=== PATIENT | male | born 1970 | race Caucasian/White ===

== ENCOUNTER 2018-02-24 20:36 | Emergency (ER) | payer OTHER ==
--- NOTE | 2018-02-24 22:28 | ED Physician Documentation ---
PD HPI BACK INJURY - Stated complaint Stated Complaint: BACK PAIN - History obtained from History obtained from: Patient - History of Present Illness Location: Right, Lower Type of injury: Fall (he fell on steps onto his buttock/low back 02/09 and had pain in low back, that worsened the next few days and has continued to hurt more. Gettin pain radiate to right inguinal area and feels some pain into testicle (but no tenderness there). Pain with ROM of low back. Had taken NSAIDs without improvement. Seen at walk in clinic in [place] 02/18 and got Rx for naproxen and flexeril. He states no improvement with those. Pain worse. No bladder incontinence. No weakness of leg.) Where injury occurred: Home Timing - onset: How many weeks ago (2) Timing - duration: Weeks (2) Timing - details: Abrupt onset, Still present (progressive worsening.) Recently seen: Clinic ([facility] [place] 02[place]18 with Rx Naproxen and flexeril and referral for PT, which patient went to today and the therapist felt the patient should be seen in ER due to degree of pain.), Surgery (had Achilles surgery month ago and has walking boot on, which led to the falling on the stairs as boot slid.) Review of Systems Constitutional: denies: Fever, Chills Nose: denies: Rhinorrhea / runny nose, Congestion Throat: denies: Sore throat Respiratory: denies: Cough GI: denies: Abdominal Pain, Nausea, Vomiting, Diarrhea : denies: Dysuria, Incontinent, Hematuria Skin: denies: Rash, Lesions Neurologic: reports: Numbness (numb area right anteromedial thigh.). denies: Focal weakness PD PAST MEDICAL HISTORY - Past Medical History Past Medical History: Yes Cardiovascular: None Respiratory: None Neuro: None HEENT: Other Other Past Medical History: Seasonal allergies - Past Surgical History Past Surgical History: Yes Ortho: Other - Present Medications Home Medications: Ambulatory Orders Medication Instructions Recorded Confirmed Omeprazole [PriLOSEC] 20 mg PO BID 02/24/18 diphenhydrAMINE [Benadryl] 50 mg PRN 02/24/18 Dexamethasone [Decadron] 4 mg PO DAILY #5 tablet 02/25/18 Naproxen [Naprosyn] 500 mg PO BID PRN #20 tablet 02/25/18 Oxycodone HCl/Acetaminophen 1 each PO Q6H PRN #20 tablet 02/25/18 [Percocet 5-325 mg Tablet] - Allergies Allergies/Adverse Reactions: Allergies Allergy/AdvReac Type Severity Reaction Status Date / Time No Known Drug Allergies Allergy Verified 02/24/18 21:12 - Social History Does the pt smoke?: No Smoking Status: Never smoker Does the pt drink ETOH?: Yes Does the pt have substance abuse?: No - Immunizations Immunizations are current?: Yes PD ED PE NORMAL - Vitals Vital signs reviewed: Yes - General General: Alert and oriented X 3, No acute distress, Well developed/nourished - Male Male : Deferred - Derm Derm: Normal color, Warm and dry - Extremities Extremities: No edema, No calf tenderness / cord, Other (walking boot orthosis on right lower leg. ) - Neuro Neuro: Alert and oriented X 3, No motor deficit, Normal speech, Other (normal reflexes at knees. There is decreased sensation to touch at right anteromedial proximal thigh. ) Results - Vitals Vitals: Vital Signs - 24 hr 02/24/18 02/25/18 20:50 00:06 Temperature 36.2 C L Heart Rate 89 77 Respiratory 18 18 Rate Blood Pressure 134/84 H 123/82 H O2 Saturation 97 97 Oxygen O2 Source Room air - Rads (name of study) lumbar and pelvic CT Radiology: Prelim report reviewed (no fractures nor noted disc problems on CT. ) PD MEDICAL DECISION MAKING - ED course Complexity details: considered differential (has symptoms of sacral radiculitis. No rash nor sores. CT scan without fractures nor obvious lumbar disc problems. I don't think he needs urgent MRI. Pain improved with meds in ED though still hurting. ), d/w patient - Sepsis Event Vital Signs: Vital Signs - 24 hr 02/24/18 02/25/18 20:50 00:06 Temperature 36.2 C L Heart Rate 89 77 Respiratory 18 18 Rate Blood Pressure 134/84 H 123/82 H O2 Saturation 97 97 Oxygen O2 Source Room air Departure - Departure Disposition: 01 Home, Self Care Clinical Impression: Right sacral radiculopathy Low back pain Qualifiers: Chronicity: acute Back pain laterality: right Sciatica presence: without sciatica Qualified Code(s): M54.5 - Low back pain Accidental fall Qualifiers: Encounter type: initial encounter Qualified Code(s): W19.XXXA - Unspecified fall, initial encounter Condition: Stable Record reviewed to determine appropriate education?: Yes Instructions: ED Sciatica Prescriptions: Dexamethasone [Decadron] 4 mg PO DAILY #5 tablet Naproxen [Naprosyn] 500 mg PO BID PRN #20 tablet PRN Reason: Pain Oxycodone HCl/Acetaminophen [Percocet 5-325 mg Tablet] 1 each PO Q6H PRN #20 tablet PRN Reason: Pain Comments: The CT scans did not show any fractures or obvious structural abnormality such as disc protrusions. Obviously it is hurting and presume there is muscle and ligament injury and pressure on the nerve root causing the numbness area. Will try using anti-inflammatories with naproxen and dexamethasone. Continue the cyclobenzaprine muscle relaxant as needed for spasms. Add Percocet if needed for pain. Follow-up with your primary care over the next week, call for an appointment. Discharge Date/Time: 02/25/18 00:31
[2018-02-24] MEDS ORDERED: HYDROmorphone 1 MG/ML CARPUJECT IM STA (22:52)
[2018-02-24] MEDS ORDERED: ONDANSETRON ODT 4 MG TABLET TL STA (22:52)
[2018-02-24] MEDS ORDERED: KETOROLAC 60 MG/2 ML VIAL IM STA (22:52)
[2018-02-24] MEDS ORDERED: DEXAMETHASONE 10 MG/ML VIAL PO STA (22:53)
[2018-02-24] MEDS ORDERED: CHERRY SYRUP 10 ML UDC PO ONE (23:02)
--- NOTE | 2018-02-24 23:53 | CT Report ---
Procedure Date: 02/24/2018 Accession Number: [id number] / [id number] Procedure: CT - Lumbar Spine W/O CPT Code: FULL RESULT: EXAM: CT LUMBAR SPINE WITHOUT CONTRAST EXAM DATE: 02/24/2018 11:25 PM. CLINICAL HISTORY: Fall, back pain COMPARISONS: None. TECHNIQUE: Thin-section axial images were acquired of the lumbar spine from T12 to S1 without contrast. Post-processing: Coronal and sagittal reformats. Other: None. In accordance with CT protocol optimization, one or more of the following dose reduction techniques were utilized for this exam: automated exposure control, adjustment of mA and/or KV based on patient size, or use of iterative reconstructive technique. FINDINGS: Alignment: No scoliosis or spondylolisthesis. Bones: Five par-[id number] lumbar vertebral bodies are present. No fractures or bone lesions. Disk Levels/Facets: T12-L1: Unremarkable. L1-L2: Unremarkable. L2-L3: Unremarkable. L3-L4: Unremarkable. L4-L5: Unremarkable. L5-S1: Unremarkable. Musculature: Normal. No fatty atrophy. Other: The visualized retroperitoneum is unremarkable. IMPRESSION: There is no evidence of lumbar spine fracture or dislocation. [facility]
--- NOTE | 2018-02-25 00:03 | CT Report ---
Procedure Date: 02/24/2018 Accession Number: [id number] / [id number] Procedure: CT - Pelvis W/O CPT Code: FULL RESULT: EXAM: CT BONY PELVIS WITHOUT CONTRAST EXAM DATE: 02/24/2018 11:26 PM. CLINICAL HISTORY: Fall, pain COMPARISON: None. TECHNIQUE: Thin-section axial images were acquired of the pelvis without contrast. Post-processing: Coronal and sagittal reformats. Other: None. In accordance with CT protocol optimization, one or more of the following dose reduction techniques were utilized for this exam: automated exposure control, adjustment of mA and/or KV based on patient size, or use of iterative reconstructive technique. FINDINGS: Bones: No fracture or bone lesion. Sacroiliac Joints: There is partial fusion of the anterior margins of the sacroiliac joints. Symphysis Pubis: Unremarkable. Right Hip: The joint space is preserved. No calcified loose bodies. Left Hip: The joint space is preserved. No calcified loose bodies. Musculature: Normal. No fatty atrophy. Pelvic Cavity: The visualized bowel, bladder, and reproductive organs are unremarkable on this noncontrast exam. Other: No lymphadenopathy. No free air or free fluid. The other visualized soft tissues are unremarkable. IMPRESSION: No evidence of pelvic fracture or dislocation. [facility]
[2018-02-25 00:07] VITALS: BP 123/82
[2018-02-25] MEDS ORDERED: oxyCOD/ACETAMIN 5 MG/325 MG TABLET PO STA (00:22)
[2018-02-25] MEDS ORDERED: oxyCODONE/ACET 5/325 Prepack 4 PO STA (00:22)
== END 2018-02-25 00:31 | disposition home or self-care (01) ==
LOC: ED 20:36
DX: M54.18 Radiculopathy, sacral and sacrococcygeal region (principal); M54.5 Low back pain; Z91.81 History of falling
CPT/HCPCS: 72131; 72192; 96372; 99283; A9270; J1170; Q0162

== ENCOUNTER 2021-09-09 08:00 | Outpatient (CLI) | payer OTHER ==
--- NOTE | 2021-09-09 13:34 | XRAY Report ---
PROCEDURE: Chest 2 View X-Ray INDICATIONS: CHRONIC POST-COVID19 SYNDROME TECHNIQUE: 2 view(s) of the chest. COMPARISON: None. FINDINGS: Surgical changes and devices: None. Lungs and pleura: No pleural effusions or pneumothorax. Lungs are clear. Mediastinum: Mediastinal contours are normal. Heart size is normal. Bones and chest wall: No suspicious bony abnormalities. Soft tissues appear unremarkable. IMPRESSION: No acute cardiopulmonary process is seen. No infiltrates are seen. Reviewed by: Karlo Ibrahim MD on 09/09/2021 12:33 PM [facility] Approved by: Karlo Ibrahim MD on 09/09/2021 12:33 PM [facility] Station ID: [id number]
== END 2021-09-09 23:59 | disposition home or self-care (01) ==
LOC: DI.S 08:00
PROVIDERS: ATTEND Emergency Medicine
DX: U09.9 Post COVID-19 condition, unspecified (principal)

== ENCOUNTER 2022-04-11 15:40 | Outpatient (CLI) | payer OTHER ==
--- NOTE | 2022-04-11 16:48 | XRAY Report ---
PROCEDURE: Chest 2 View X-Ray INDICATIONS: COUGH TECHNIQUE: 2 view(s) of the chest. COMPARISON: None. FINDINGS: Surgical changes and devices: None. Lungs and pleura: No pleural effusions or pneumothorax. Lungs are clear. Mediastinum: Mediastinal contours are normal. Heart size is normal. Bones and chest wall: No suspicious bony abnormalities. Soft tissues appear unremarkable. IMPRESSION: No acute cardiopulmonary disease. Reviewed by: Josefina Lundy MD on 04/11/2022 4:47 PM PDT Approved by: Josefina Lundy MD on 04/11/2022 4:47 PM PDT Station ID: [id number]
== END 2022-04-11 15:41 | disposition home or self-care (01) ==
LOC: DI.S 15:40
PROVIDERS: ATTEND Physician Assistant
DX: R05.9 Cough, unspecified (principal); Z87.01 Personal history of pneumonia (recurrent)